=== PATIENT | male | born 1945 | race Caucasian/White ===

== ENCOUNTER 2016-11-14 09:39 | Day surgery (SDC) | payer MEDICARE, BC ==
[2016-11-14 10:16] VITALS: TEMP 97.8
[2016-11-14] MEDS ORDERED: DEXAMETHASONE SOD PHOS PF 10 MG/ML SOL IJ ONE (10:45)
[2016-11-14] MEDS ORDERED: LIDOCAINE HCL 1% MPF SOL ONE (11:11)
[2016-11-14 11:34] VITALS: BP 170/97; PULSE 58; RESP 16; O2SAT 97
== END 2016-11-14 11:42 | disposition home or self-care (01) | DRG 552 ==
LOC: SURG 09:39
PROVIDERS: ATTEND Nurse Anesthetist, Certified Registered
DX: M54.5 Low back pain (principal); E11.9 Type 2 diabetes mellitus without complications; M48.06 Spinal stenosis, lumbar region; M54.16 Radiculopathy, lumbar region
CPT/HCPCS: 82962; J1100

== ENCOUNTER 2017-05-04 22:18 | Emergency (ER) | payer MEDICARE, BC ==
[2017-05-04 22:25] VITALS: RESP 20; TEMP 98.2
[2017-05-04] MEDS ORDERED: CLONIDINE 0.1 MG TAB PO ONE (22:38)
[2017-05-04] MEDS ORDERED: CLONIDINE 0.1 MG TAB ONE (22:39)
[2017-05-04 23:27] VITALS: BP 131/65; PULSE 69; O2SAT 96
== END 2017-05-04 23:25 | disposition home or self-care (01) | DRG 305 ==
LOC: ED 22:18
DX: I10 Essential (primary) hypertension (principal)
CPT/HCPCS: 99282; 99283

== ENCOUNTER 2017-07-01 11:37 | Outpatient (CLI) | payer MEDICARE, BC ==
[2017-05-04 23:27] VITALS: O2SAT 96
== END 2017-07-01 11:38 | disposition home or self-care (01) | DRG 554 ==
LOC: CONVCARE 11:37
PROVIDERS: ATTEND Orthopaedic Surgery
DX: M16.12 Unilateral primary osteoarthritis, left hip (principal); M51.36 Other intervertebral disc degeneration, lumbar region
CPT/HCPCS: 73501

== ENCOUNTER 2017-07-08 08:00 | Outpatient (CLI) | payer MEDICARE, BC ==
[2017-05-04 23:27] VITALS: O2SAT 96
== END 2017-07-08 08:01 | disposition home or self-care (01) | DRG 556 ==
LOC: CONVCARE 08:00
PROVIDERS: ATTEND Orthopaedic Surgery
DX: M25.552 Pain in left hip (principal)

== ENCOUNTER 2017-09-11 12:16 | Day surgery (SDC) | payer MEDICARE, BC ==
[2017-09-11] MEDS ORDERED: BUPIVACAINE HCL 0.25% MPF 10 ML SOL INFIL ONE (13:08)
[2017-09-11] MEDS: DEXAMETHASONE SOD PHOS PF 10 MG/ML SOL IJ ONE ×2 (13:21→13:26)
[2017-09-11 13:40] VITALS: RESP 20; TEMP 98.7
[2017-09-11 13:46] VITALS: BP 151/76; PULSE 73; O2SAT 96
== END 2017-09-11 13:55 | disposition home or self-care (01) | DRG 552 ==
LOC: SURG 12:16
PROVIDERS: ATTEND Nurse Anesthetist, Certified Registered
DX: M54.5 Low back pain (principal); M54.16 Radiculopathy, lumbar region
CPT/HCPCS: J1100

== ENCOUNTER 2017-10-02 13:02 | Day surgery (SDC) | payer MEDICARE, BC ==
[2017-10-02] MEDS ORDERED: BUPIVACAINE HCL 0.25% MPF 10 ML SOL INFIL ONE (13:39)
[2017-10-02] MEDS: DEXAMETHASONE SOD PHOS PF 10 MG/ML SOL IJ ONE ×4 (13:40→14:03)
[2017-10-02 14:30] VITALS: BP 162/90; PULSE 60; RESP 18; TEMP 97.4; O2SAT 98
== END 2017-10-02 14:38 | disposition home or self-care (01) | DRG 552 ==
LOC: SURG 13:02
PROVIDERS: ATTEND Nurse Anesthetist, Certified Registered
DX: M48.062 Spinal stenosis, lumbar region with neurogenic claudication (principal)
CPT/HCPCS: J1100

== ENCOUNTER → 2017-11-20 | Day surgery (SDC) | payer MEDICARE, BC ==
[2017-11-20 14:03] VITALS: BP 154/81; PULSE 80; RESP 20; TEMP 97.9; O2SAT 95
== END | disposition home or self-care (01) | DRG 951 ==
LOC: SURG 13:44
PROVIDERS: ATTEND Nurse Anesthetist, Certified Registered
DX: Z53.9 Procedure and treatment not carried out, unspecified reason (principal)

== ENCOUNTER 2017-12-09 11:50 | Day surgery (SDC) | payer MEDICARE, BC ==
[2017-12-09 12:15] VITALS: RESP 16; TEMP 97.4
[2017-12-09] MEDS ORDERED: BUPIVACAINE HCL 0.25% MPF 10 ML SOL INFIL ONE (12:49)
[2017-12-09] MEDS ORDERED: DEXAMETHASONE SOD PHOS PF 10 MG/ML SOL IJ ONE (12:49)
[2017-12-09] MEDS ORDERED: LIDOCAINE HCL 1% MPF SOL ONE (12:50)
[2017-12-09 13:32] VITALS: PULSE 69; O2SAT 96
[2017-12-09 13:39] VITALS: BP 144/91
== END 2017-12-09 13:48 | disposition home or self-care (01) | DRG 554 ==
LOC: SURG 11:50
PROVIDERS: ATTEND Nurse Anesthetist, Certified Registered
DX: M12.88 Other specific arthropathies, not elsewhere classified, other specified site (principal)
CPT/HCPCS: J1100; J2001

== ENCOUNTER 2017-12-25 10:02 | Day surgery (SDC) | payer MEDICARE, BC ==
[2017-12-25] MEDS ORDERED: LIDOCAINE HCL 1% MPF 30 SOL ONE (13:28)
[2017-12-25] MEDS ORDERED: BUPIVACAINE HCL 0.25% MPF 30 ML SOL INFIL ONE (13:28)
[2017-12-25 14:21] VITALS: BP 162/85; PULSE 78; RESP 20; TEMP 98.6; O2SAT 94
== END 2017-12-25 14:30 | disposition home or self-care (01) | DRG 554 ==
LOC: SURG 10:02
PROVIDERS: ATTEND Nurse Anesthetist, Certified Registered
DX: M12.88 Other specific arthropathies, not elsewhere classified, other specified site (principal)
CPT/HCPCS: J2001

== ENCOUNTER 2018-01-16 10:31 | Day surgery (SDC) | payer MEDICARE, BC ==
[2018-01-16] MEDS ORDERED: BUPIVACAINE HCL 0.25% MPF 10 ML SOL INFIL ONE (11:01)
[2018-01-16] MEDS ORDERED: LIDOCAINE HCL 1% MPF SOL ONE (11:01)
[2018-01-16] MEDS ORDERED: TRIAMCINOLONE ACETONIDE 40 MG/ML SUS ONE (11:02)
[2018-01-16] MEDS ORDERED: MIDAZOLAM 2 MG/2 ML SOL ONE (11:08)
[2018-01-16] MEDS ORDERED: FENTANYL 100MCG/2ML SOL ONE (11:08)
[2018-01-16] MEDS ORDERED: SODIUM CHLORIDE 0.9% FLUSH 10 ML SOL IV ONE ×2 (11:11→11:12)
[2018-01-16] MEDS ORDERED: LIDOCAINE HCL 2% MPF SOL ONE (11:12)
[2018-01-16 11:53] VITALS: BP 160/83; PULSE 73; RESP 16; TEMP 97.8; O2SAT 94
== END 2018-01-16 12:15 | disposition home or self-care (01) | DRG 554 ==
LOC: SURG 10:31
PROVIDERS: ATTEND Nurse Anesthetist, Certified Registered
DX: M12.88 Other specific arthropathies, not elsewhere classified, other specified site (principal)
CPT/HCPCS: J2250; J3010; J2001; J3300

== ENCOUNTER → 2018-01-22 | Day surgery (SDC) | payer MEDICARE, BC ==
[~2018-01-22] MED LIST: BUPIVACAINE HCL 0.25% MPF 10 ML SOL INFIL ONE; LIDOCAINE HCL 1% MPF SOL ONE; LIDOCAINE HCL 2% MPF SOL ONE; MIDAZOLAM 2 MG/2 ML SOL ONE; SODIUM CHLORIDE 0.9% FLUSH 10 ML SOL IV ONE; TRIAMCINOLONE ACETONIDE 40 MG/ML SUS ONE
[2018-01-22] MEDS: FENTANYL 100MCG/2ML SOL ONE ×2 (10:16→10:28)
[2018-01-22 11:20] VITALS: RESP 20
[2018-01-22 11:25] VITALS: TEMP 97.4
[2018-01-22 11:33] VITALS: BP 157/99; PULSE 56; O2SAT 91
== END | disposition home or self-care (01) | DRG 554 ==
LOC: SURG 09:28
PROVIDERS: ATTEND Nurse Anesthetist, Certified Registered
DX: M12.88 Other specific arthropathies, not elsewhere classified, other specified site (principal)
CPT/HCPCS: 82962; J2250; J3010; J2001; J3300

== ENCOUNTER 2018-07-12 10:42 | Emergency (ER) | payer MEDICARE, BC ==
[2018-07-12] MEDS ORDERED: ASPIRIN 81 MG CHEWABLE CTB PO STA (10:48)
[2018-07-12] MEDS ORDERED: SODIUM CHLORIDE 0.9% FLUSH 10 ML SOL IV PRN (10:48)
[2018-07-12] MEDS ORDERED: NITROGLYCERIN 0.4 MG TAB SL PRN (10:48)
[2018-07-12] MEDS ORDERED: ASPIRIN 81 MG CHEWABLE CTB ONE (10:52)
[2018-07-12] MEDS ORDERED: NITROGLYCERIN 0.4 MG TAB SL ONE (10:52)
[2018-07-12 10:54] LABS: BASOPHILS % (AUTO) 1 % (0-3); EOSINOPHILS % (AUTO) 3 % (0-9); HEMATOCRIT 46 % (39-53); HEMOGLOBIN 15.7 gm/dl (13.5-17.7); LYMPHOCYTES % (AUTO) 29.2 % (10-50); MEAN CORPUSCULAR HEMOGLOBIN 31.4 pg (27.0-32.0); MEAN CORPUSCULAR VOLUME 92 fL (80-100); MONOCYTES % (AUTO) 7.1 % (0-12); NEUTROPHILS % (AUTO) 59.2 % (37-80)
[2018-07-12 11:16] VITALS: TEMP 98.2
[2018-07-12 11:16] LABS: BLOOD UREA NITROGEN 23 mg/dl (7-18); CALCIUM 9.1 mg/dl (8.5-10.1); CARBON DIOXIDE 30.8 mEq/L (21-32); CREATINE KINASE 130 U/L (39-308); CREATININE 1.23 mg/dl (0.80-1.30); GLUCOSE 164 mg/dl (74-106); TROP I < 0.017 ng/ml (0.000-0.056)
[2018-07-12 11:18] LABS: CHLORIDE 101 mMol/L (98-107); POTASSIUM 4.4 mMol/L (3.5-5.1); SODIUM 141 mMol/L (136-145)
[2018-07-12] MEDS ORDERED: SODIUM CHLORIDE 0.9% 1000 ML SOL IV SCH (12:15)
[2018-07-12 16:29] VITALS: BP 170/91; PULSE 70; RESP 11; O2SAT 98
== END 2018-07-12 15:37 | disposition home or self-care (01) | DRG 313 ==
LOC: ED 10:42
DX: R07.89 Other chest pain (principal)
CPT/HCPCS: 36415; 71045; 80048; 82550; 84484; 85025; 93005; 96365; 99284; A9270-GY

== ENCOUNTER 2019-04-27 14:31 | Outpatient (CLI) | payer BC ==
[2018-07-12 16:29] VITALS: O2SAT 98
== END 2019-04-27 14:32 | disposition home or self-care (01) | DRG 558 ==
LOC: CONVCARE 14:31
PROVIDERS: ATTEND Orthopaedic Surgery
DX: M70.61 Trochanteric bursitis, right hip (principal)
CPT/HCPCS: 73502